=== PATIENT | female | born 1985 | race Caucasian/White ===

== ENCOUNTER 2018-05-26 12:45 | Inpatient (IN) | payer OTHER ==
[~2018-05-26] VITALS: Ht 170.2 cm; Wt 4.1 kg
[2018-06-01] MEDS ORDERED: PRENATABS FA T1 EACH PO (09:19)
== END 2018-06-04 14:46 | disposition home or self-care (01) | DRG 785 ==
LOC: O/R 06-01 03:45 → OB/GYN 06-01 08:44 → O/R 06-01 08:44 → OB/GYN 06-01 17:26
PROVIDERS: ADMIT Obstetrics & Gynecology
PROC: 0UT70ZZ Resection of Bilateral Fallopian Tubes, Open Approach (ICD-10-PCS; 2018-06-01)
PROC: 4A1HXCZ Monitoring of Products of Conception, Cardiac Rate, External Approach (ICD-10-PCS; 2018-06-01)
PROC: 10D00Z1 Extraction of Products of Conception, Low, Open Approach (ICD-10-PCS; principal; 2018-06-01 03:45)
DX: O36.63X0 Maternal care for excessive fetal growth, third trimester, not applicable or unspecified (principal); O34.211 Maternal care for low transverse scar from previous cesarean delivery; O75.82 Onset (spontaneous) of labor after 37 completed weeks of gestation but before 39 completed weeks gestation, with delivery by (planned) cesarean section; Z30.2 Encounter for sterilization; Z3A.39 39 weeks gestation of pregnancy; Z37.0 Single live birth; Z22.330 Carrier of Group B streptococcus